=== PATIENT | male | born 1995 | race Caucasian/White ===

== ENCOUNTER 2017-04-06 16:58 | Emergency (ER) | payer OTHER ==
[~2017-04-06] VITALS: Ht 162.6 cm; Wt 80.8 kg
[2017-04-06 17:06] VITALS: TEMP 37.1; Ht 162.6 cm; Wt 80.8 kg
[2017-04-06] MEDS ORDERED: METOCLOPRAMIDE HCL INJ 5 MG/ML 2 ML VIAL IV STA (17:20)
[2017-04-06] MEDS ORDERED: ACETAMINOPHEN 500 MG TAB PO STA (17:20)
[2017-04-06] MEDS ORDERED: SODIUM CHLORIDE 0.9% 1000ML 1,000 ML IV STA (17:20)
--- NOTE | 2017-04-06 17:29 | EMERGENCY ROOM VISIT NOTE ---
History Report prepared by [place]: Rafa Ge Under the Supervision of: Dr. Steve Birch M.D. First contact with patient: 16:52 Chief Complaint: SYNCOPE (NEAR SYNCOPE) Stated Complaint: SYNCOPE History of Present Illness The patient is a 21 year old male who presents to the Emergency Room via EMS with complaints of a sudden syncopal episode occurring prior to arrival. He currently rates his discomfort as a 5/10 in severity. The patient states that he donated blood, and afterwards he felt fine. He states that he was in a building on campus, took off his band-aid and it was still bleeding. He then passed out, and he woke up 10 seconds later. He states that he hit his head and his left side. He states that he does not remember the incident, and he remembers when the EMS got there. The patient states that he has given blood before, and this has never happened, though he states that he passed out once before after having a biopsy. He is currently complaining of light headedness, neck pain, and left shoulder pain. He denies any headache, nausea, vomiting. He does not drink alcohol, smoke, or use drugs. He states that the last time that he gave blood was 4-5 months ago. He additionally states that he has fainted a few times in the past during surgeries. Source of History: patient Onset: prior to arrival Position: other (global) Symptom Intensity: 5/10 Quality: other (syncopal episode) Timing: other (sudden) Associated Symptoms: No headache, No nausea, No vomiting Note: Associated symptoms: light headedness and left shoulder pain Review of Systems See HPI for pertinent positives and negatives. A total of ten systems were reviewed and were otherwise negative. Past Medical & Surgical Medical Problems: (1) Syncope Surgical Problems: (1) H/O toe surgery (2) S/P skin biopsy Social History Smoking Status: Never Smoker Housing Status: lives with roommate Occupation Status: [employer] student Current/Historical Medications Scheduled PRN Diazepam (Valium), 1 TAB PO DAILY PRN for Muscle Spasms Ibuprofen Tab (Motrin), 800 MG PO Q8H PRN for Pain Allergies Coded Allergies: No Known Allergies (Unverified , 04/06/17) Physical Exam Vital Signs Date Time Temp Pulse Resp B/P (MAP) Pulse Ox O2 Delivery O2 Flow Rate FiO2 04/06/17 20:01 104 22 121/82 99 Room Air 04/06/17 18:39 93 18 125/82 100 Room Air 04/06/17 17:12 88 04/06/17 17:06 37.1 103 20 118/74 99 Room Air Physical Exam GENERAL: Awake, alert, well-appearing, in no distress HENT: 2cm occipital hematoma with a 1cm linear abrasion overlying. Dry mucous membranes. Normocephalic. Oropharynx unremarkable. EYES: Normal conjunctiva. Sclera non-icteric. NECK: Palpable left paraspinal muscle spasm extending to the trapezius on the left with some tenderness to palpation across the trapezius. Active range of motion intact at shoulder. No clavicular tenderness or deformity. Shoulders are symmetric. Supple. No nuchal rigidity. No JVD. RESPIRATORY: Clear to auscultation. CARDIAC: Regular rate, normal rhythm. Extremities warm and well perfused. Pulses equal. ABDOMEN: Soft, non-distended. No tenderness to palpation. No rebound or guarding. No masses. RECTAL: Deferred. MUSCULOSKELETAL: Chest examination reveals no tenderness. The back is symmetrical on inspection without obvious abnormality. There is no CVA tenderness to palpation. No joint edema. LOWER EXTREMITIES: Calves are equal size bilaterally and non-tender. No edema. No discoloration. NEURO: Normal sensorium. No sensory or motor deficits noted. No cerebellar deficits. SKIN: No rash or jaundice noted. Medical Decision & Procedures Laboratory Results 04/06/17 17:55 Red Blood Count 4.86, Mean Corpuscular Volume 85.4, Mean Corpuscular Hemoglobin 28.4, Mean Corpuscular Hemoglobin Concent 33.3, Mean Platelet Volume 10.0, Neutrophils (%) (Auto) 72.7, Lymphocytes (%) (Auto) 19.4, Monocytes (%) (Auto) 6.2, Eosinophils (%) (Auto) 1.5, Basophils (%) (Auto) 0.1, Neutrophils # (Auto) 5.71, Lymphocytes # (Auto) 1.53, Monocytes # (Auto) 0.49, Eosinophils # (Auto) 0.12, Basophils # (Auto) 0.01 04/06/17 17:55 Test 04/06/17 17:55 White Blood Count 7.87 K/uL (4.8-10.8) Red Blood Count 4.86 M/uL (4.7-6.1) Hemoglobin 13.8 g/dL (14.0-18.0) Hematocrit 41.5 % (42-52) Mean Corpuscular Volume 85.4 fL (80-100) Mean Corpuscular Hemoglobin 28.4 pg (25-34) Mean Corpuscular Hemoglobin Concent 33.3 g/dl (32-36) Platelet Count 241 K/uL (130-400) Mean Platelet Volume 10.0 fL (7.4-10.4) Neutrophils (%) (Auto) 72.7 % Lymphocytes (%) (Auto) 19.4 % Monocytes (%) (Auto) 6.2 % Eosinophils (%) (Auto) 1.5 % Basophils (%) (Auto) 0.1 % Neutrophils # (Auto) 5.71 K/uL (1.4-6.5) Lymphocytes # (Auto) 1.53 K/uL (1.2-3.4) Monocytes # (Auto) 0.49 K/uL (0.11-0.59) Eosinophils # (Auto) 0.12 K/uL (0-0.5) Basophils # (Auto) 0.01 K/uL (0-0.2) RDW Standard Deviation 38.4 fL (36.4-46.3) RDW Coefficient of Variation 12.4 % (11.5-14.5) Immature Granulocyte % (Auto) 0.1 % Immature Granulocyte # (Auto) 0.01 K/uL (0.00-0.02) Anion Gap 6.0 mmol/L (3-11) Est Creatinine Clear Calc Drug Dose 102.0 ml/min Estimated GFR () 110.6 Estimated GFR (Non- 95.5 BUN/Creatinine Ratio 9.6 (10-20) Calcium Level 8.9 mg/dl (8.5-10.1) Laboratory results reviewed by me Medications Administered Medications (Trade) Dose Ordered Sig/Kasey Route Start Time Stop Time Status Last Admin Dose Admin Sodium Chloride 1,000 ml @ 999 mls/hr Q1H1M STAT IV 04/06/17 17:20 04/06/17 18:20 DC 04/06/17 18:11 999 MLS/HR Metoclopramide HCl (Reglan Inj) 10 mg NOW STAT IV 04/06/17 17:20 04/06/17 17:25 DC 04/06/17 18:11 10 MG Acetaminophen (Tylenol Tab) 1,000 mg NOW STAT PO 04/06/17 17:20 04/06/17 17:25 DC 04/06/17 17:34 1,000 MG Ibuprofen (Motrin Tab) 800 mg NOW STAT PO 04/06/17 19:11 04/06/17 19:12 DC 04/06/17 19:59 800 MG Diazepam (Valium Tab) 2 mg NOW ONCE PO 04/06/17 19:15 04/06/17 19:16 DC 04/06/17 19:59 2 MG ECG Indication: syncope Rate (beats per minute): 83 Rhythm: normal sinus, other (Sinus arrhythmia) Findings: no acute ischemic change, other (normal intervals, normal axis, no SD depression) ED Course 1710: The patient was evaluated in room A12. A complete history and physical exam was performed. 1720: Tylenol Tab 1000mg PO, Reglan Inj 10mg IV, Sodium Chloride 1000 ml @ 999 mls/hr IV 1748: The patient talked with his mother, and he is now okay with getting a CT scan of his head. Medical Decision I reviewed the patient's past medical history, medications, and the nursing notes as described above. Differential diagnoses include: vasovagal orthostatic syncope, dehydration, electrolyte abnormality, less likely cardiac arrhythmia, and intracranial hemorrhage. Patient is a 21-year-old gentleman who presents to emergency department after a syncopal episode setting of giving blood earlier today and then looking at his prior IV site that was "oozing a little" and suddenly felt lightheaded and syncopized hitting the back of his head. The patient reports that bystanders reported that he was unconscious for 10 seconds however his only recollection of the event after passing out was when EMS had arrived, suggesting either prolonged loss of consciousness or amnesia. Otherwise on arrival the patient feels mildly lightheaded with a mild headache but he is in no acute distress, afebrile and with stable vital signs. On exam patient is neurologically intact. The patient has a 2 cm hematoma to the occipital scalp with a superficial linear abrasion that is likely the source for the patient's scant bleeding, no repair of this is required given it is limited to the epidermis. Hemostatic with pressure. Td UTD per patient. EKG is unremarkable. Given the recent blood donation CBC and BMP checked with HCT 41.5 and chemistry otherwise unremarkable. Given there is question of prolonged loss of consciousness occipital hematoma CT head was done and was negative. Patient feeling improved after IVF. Neck exam without midline ttp or stepoffs. Left paraspinal / trapezius muscle with palpable muscles spasm c/w torticollis. Patient denies any radicular sx, Motor sensory intact x 4 ext. Of note, patient reports prior episodes of syncope with painful stimulus such as skin biopsy, and dental work suggesting likely vasovagal hx. Given this as well as recent blood donation, likely multi-factorial vasovagal/orthostatic etiology. Findings and plan for follow-up d/w patient. Patient agreeable and d/c'd per discharge instructions. [place] Drug Monitoring Program Search Results: patient reviewed within database, no issues identified Impression Primary Impression: Concussion Additional Impressions: Torticollis, unspecified Syncope and collapse Scribe Attestation The scribe's documentation has been prepared under my direction and personally reviewed by me in its entirety. I confirm that the note above accurately reflects all work, treatment, procedures, and medical decision making performed by me. Departure Information Dispostion Home / Self-Care Prescriptions Diazepam (VALIUM) 2 Mg Tab 1 TAB PO DAILY Y for Muscle Spasms, #2 TAB Prov: Steve Birch M.D. 04/06/17 Ibuprofen Tab (MOTRIN) 800 Mg Tab 800 MG PO Q8H Y for Pain for 7 Days, #21 TAB Prov: Steve Birch M.D. 04/06/17 Referrals No Doctor, Assigned (PCP) Patient Instructions Concussion Dc, ED Concussion, Fainting (Syncope) - [facility] , Torticollis Additional Instructions Please follow up with your primary care physician in the next 1-3 days for re- evaluation. Your exam, EKG, lab results, and CT scan did not show signs of an emergent condition at this time. Take acetaminophen and ibuprofen for pain as needed. Use of Valium as prescribed for muscle relaxation as needed. Use heating pad at 20 minute intervals throughout the day for additional muscle relaxation. Avoid sensory stimulus if you feel worsening symptoms of your concussion such as headaches or nausea. Return to the emergency department for worsening symptoms as described in the accompanying instructions. Problem Qualifiers
[2017-04-06 18:07] LABS: BASO % 0.1 %; BASO ABS # 0.01 K/uL (0-0.2); COMPLETE YES; EOS % 1.5 %; HEMATOCRIT 41.5 % (42-52); IG% 0.1 %; LYMPH % 19.4 %; LYMPH ABS # 1.53 K/uL (1.2-3.4); MEAN CELL VOLUME 85.4 fL (80-100); MEAN CORPUSCULAR HEMOGLOBIN 28.4 pg (25-34); MEAN CORPUSCULAR HGB CONC 33.3 g/dl (32-36); MONO % 6.2 %; NEUT % 72.7 %; PLATELET COUNT 241 K/uL (130-400); RED BLOOD COUNT 4.86 M/uL (4.7-6.1); WHITE BLOOD COUNT 7.87 K/uL (4.8-10.8)
[2017-04-06 18:25] LABS: BUN/CREATININE RATIO 9.6 (10-20); CALCIUM 8.9 mg/dl (8.5-10.1); CREATININE 1.1 mg/dl (0.60-1.40); POTASSIUM 3.9 mmol/L (3.5-5.1)
--- NOTE | 2017-04-06 18:40 | DIAGNOSTIC IMAGING REPORT ---
HEAD CT NONCONTRAST CT DOSE: 638.56 mGycm HISTORY: syncope fall TECHNIQUE: Multiaxial CT images of the head were performed without the use of intravenous contrast. Automated exposure control was utilized for this study. A dose lowering technique was utilized adhering to the principles of ALARA. Comparison: None. Findings: The paranasal sinuses and mastoid air cells are clear. The calvarium and skull base are intact. The ventricles and sulci are within normal limits. There is no mass, hematoma, midline shift, or acute infarct. Left posterior scalp swelling. Impression: No acute intracranial abnormality. Left posterior scalp swelling. Electronically signed by: Keith Jasso M.D. 04/06/2017 6:38 PM Dictated Date/Time: 04/06/2017 6:33 PM
[2017-04-06] MEDS ORDERED: IBUPROFEN 800 MG TAB PO STA (19:11)
[2017-04-06] MEDS ORDERED: DIAZEPAM 5MG TAB PO ONE (19:15)
[2017-04-06] MEDS ORDERED: DIAZ2TAB PO (19:15)
[2017-04-06] MEDS ORDERED: IBUP-1451 PO (19:15)
[2017-04-06 20:01] VITALS: BP 121/82; PULSE 104; O2SAT 99
== END 2017-04-06 20:16 | disposition home or self-care (01) ==
LOC: C.EDA 17:02
DX: S06.0X1A Concussion with loss of consciousness of 30 minutes or less, initial encounter (principal); S13.4XXA Sprain of ligaments of cervical spine, initial encounter; S00.03XA Contusion of scalp, initial encounter; W01.10XA Fall on same level from slipping, tripping and stumbling with subsequent striking against unspecified object, initial encounter; R55 Syncope and collapse